=== PATIENT | male | born 1950 | race Caucasian/White ===

== ENCOUNTER → 2024-03-31 | Outpatient (CLI) | payer MEDICARE, SELFPAY ==
--- NOTE | 2024-03-31 08:00 | CT_ITS ---
CT RIGHT LOWER EXTREMITY WITH 3-D IMAGING CLINICAL INDICATION: EFFUSION RIGHT KNEE TECHNIQUE: Axial CT images of the right lower extremity (including right hip, right knee, and right ankle) was performed without IV contrast material. Coronal and sagittal reformats were provided. RADIATION DOSAGE (If Supplied By Facility): CTDIvol = ( 23.65 ) mGy, DLP = ( 1292.14 ) mGycm COMPARISON: No relevant prior comparison study available. FINDINGS: Bones: There is degenerative arthrosis of the right hip joint with mild joint space narrowing, marginal osteophyte formation, and small subchondral cyst formation. There is mild tricompartment degenerative arthrosis of the right knee with joint space narrowing and marginal osteophyte formation, most pronounced in the medial femorotibial compartment. There calcified loose bodies in the anterior femorotibial joint recess, measuring up to 1.5 cm in diameter. Unremarkable right ankle. Osseous structures are normal without evidence of fracture or dislocation. No lytic or blastic osseous masses. Soft Tissues: There is a moderate right knee joint effusion. The deep soft tissue structures are unremarkable. There is moderate subcutaneous soft tissue edema around the anterior half of the knee. CT/Extremity Lower without Contra IMPRESSION: Mild tricompartment degenerative arthrosis of the right knee, most pronounced in the medial femorotibial compartment. Moderate right knee joint effusion. Electronically Signed: Keshav Loco MD at 8:55 EDT ,
== END | disposition home or self-care (01) ==
LOC: CT 07:57
PROVIDERS: Referring Provider Specialist; Visit Provider Specialist
DX: M17.0 Bilateral primary osteoarthritis of knee (principal); M21.161 Varus deformity, not elsewhere classified, right knee; M25.461 Effusion, right knee
CPT/HCPCS: 73700

== ENCOUNTER → 2025-06-04 | Outpatient (CLI) | payer MEDICARE, SELFPAY ==
[2025-06-04 11:00] LABS: CRP < 3.00 mg/L (0.0-3.0)
[2025-06-04 12:15] LABS: Hematocrit 42.3 % (40-54); Hemoglobin 14.1 g/dL (13.0-16.5); Immature Granulocytes Count 0.060 X10^3/uL (0.0-0.0); Mean Corp Hgb Conc 33.3 g/dL (32-36); Mean Corpuscular Volume 89.4 fL (80-94); Mean Platelet Vol. 11.7 fl (6.2-12.0); NRBC Flagged by Analyzer 0 % (0-5); Platelet Count 214 K/mm3 (150-450); RBC Distribution Width CV 13.4 % (11.6-14.6); RBC Distribution Width SD 43.8 fl (35.1-43.9); Red Blood Count 4.73 M/mm3 (4.6-6.2); White Blood Count 6.1 K/mm3 (4.4-11.0)
== END | disposition home or self-care (01) ==
LOC: LAB 09:54
PROVIDERS: Referring Provider Physician Assistant Surgical; Visit Provider Physician Assistant Surgical
DX: I10 Essential (primary) hypertension (principal)
CPT/HCPCS: 36415; 85025; 85652; 86140